=== PATIENT | female | born 1960 | race Caucasian/White ===

== ENCOUNTER 2020-01-22 03:31 | Emergency (ER) | payer BC, SELFPAY ==
[2020-01-22] VITALS (9 sets, daily range): BP systolic 95–113; BP diastolic 70–83; PULSE 72–102; RESP 16–20; TEMP 36.1; O2SAT 92–99; BMI 28.1
--- NOTE | 2020-01-22 03:53 | CTR_ITS ---
PROCEDURE INFORMATION: Exam: CT Abdomen And Pelvis With Contrast Exam date and time: 01/22/2020 3:57 AM Age: 59 years old Clinical indication: Abdominal pain; Localized; Left lower quadrant (llq); Prior surgery; Surgery type: Hysterectomy. Appy; Patient HX: Llq pain with n/v TECHNIQUE: Imaging protocol: Computed tomography of the abdomen and pelvis with intravenous contrast. Radiation optimization: All CT scans at this facility use at least one of these dose optimization techniques: automated exposure control; mA and/or kV adjustment per patient size (includes targeted exams where dose is matched to clinical indication); or iterative reconstruction. Contrast material: OMNI 300; Contrast volume: 95 ml; Contrast route: INTRAVENOUS (IV); COMPARISON: No relevant prior studies available. RADIATION DOSE METRICS: Total DLP (mGy-cm): 1462.27 FINDINGS: Liver: Normal. No mass. Gallbladder and bile ducts: Normal. No calcified stones. No ductal dilation. Pancreas: Normal. No ductal dilation. Spleen: Normal. No splenomegaly. Adrenals: Normal. No mass. Kidneys and ureters: Normal. No hydronephrosis. Stomach and bowel: There is intermediate density fluid seen adjacent to the caudal tip of the liver, within the right pericolic gutter, adjacent to loops of small bowel in the left flank, within the left pericolic gutter and within the pelvis compatible with hemorrhagic fluid. These findings are worrisome for a bowel perforation. There is some bowel wall thickening within the jejunum and the jejunum is dilated. There is some desiccated bowel contents seen within the jejunum in the left flank with a possible transition present (series 2: Image 45, series 602: Image 34 and series 601: Image 21). There are diverticula present on the sigmoid colon. There is no definite evidence for diverticulitis or perforation. Appendix: No evidence of appendicitis. Intraperitoneal space: There is free air seen within the upper abdomen and scattered within the omental and mesenteric fat in the mid abdomen. Vasculature: Unremarkable. No abdominal aortic aneurysm. Lymph nodes: Unremarkable. No enlarged lymph nodes. Bladder: Unremarkable as visualized. Reproductive: Unremarkable as visualized. Bones/joints: Unremarkable. No acute fracture. Soft tissues: Unremarkable. CT/CT abdomen pelvis w con* [id number] IMPRESSION: 1. There is free air and free hemorrhagic fluid present within the abdomen as described above. This raises concern for a bowel perforation. There are dilated loops of jejunum exhibiting prominent wall thickening seen within the left flank with a possible transition seen on the left. 2. Diverticulosis of the sigmoid colon without evidence of diverticulitis. Radiation Dose CTDIVOL = (mGy): DLP = 1462.27 (mGy-cm)
[2020-01-22] MEDS: ondansetron 2 mg/ML SDV 2 mL 4 MG IVP (04:49)
[2020-01-22] MEDS: HYDROmorphone 1 mg/mL INJ 1 mL IVP ×2 (04:51→05:55)
[2020-01-22 05:02] LABS: Basophils % 0.6 %; Eosinophils % 0.2 %; Hematocrit 52.6 % (37.0-47.0); Hemoglobin 17.7 g/dL (11.5-15.3); Lymphocytes # 0.4 10^3/uL (0.8-4.8); Lymphocytes % 7.4 %; Mean Corpuscular HGB Conc 33.7 g/dL (30.0-36.0); Mean Corpuscular Hemoglobin 31.4 pg (28.0-34.0); Mean Corpuscular Volume 93.3 fL (81-99); Mean Platelet Volume 10.4 fL (7.4-10.4); Monocytes # 0.3 10^3/uL (0.2-0.9); Monocytes % 5.2 %; Neutrophils % 86.6 %; Nucleated Red Blood Cells % 0 %; Platelet Count 248 10^3/cmm (130-400); Red Blood Count 5.64 10^6/uL (4.1-5.3); Red Cell Distribution Width 13.2 % (12.1-15.1)
[2020-01-22 05:16] LABS: Alanine Aminotransferase 18 U/L (0-33); Albumin Level 4.5 g/dL (3.5-5.2); Alkaline Phosphatase 91 IU/L (35-105); Anion Gap 15.1 (5-19); Aspartate Amino Transferase 22 U/L (0-32); Blood Urea Nitrogen 19 mg/dL (8-23); Calcium 10.6 mg/dL (8.5-10.5); Carbon Dioxide 29 mmol/L (22-29); Chloride 97 mmol/L (98-107); Globulin 2.9 g/dL (1.3-4.6); Glomerular Filtration Rate 72.9 mL/min (90-130); Glucose 148 mg/dL (65-115); Lactate (Lactic Acid level) 2.6 mmol/L (0.5-2.2); Lipase 40 U/L (13-60); Osmolality Calculated 283 mOsm/kg (285-295); Potassium 4.1 mmol/L (3.5-5.1); Sodium 137 mmol/L (136-145); Total Bilirubin 0.8 mg/dL (0.15-1.2); Total Protein 7.4 g/dL (6.6-8.7)
[2020-01-22] MEDS: iohexol 300 mg/mL 100 mL Btl IV (05:29)
[2020-01-22 05:44] LABS: C Reactive Protein 16.6 mg/L (0.0-4.9)
[2020-01-22] MEDS: ciprofloxacin 400 MG/200 ML PREMIX 200 MG IV (05:55)
--- NOTE | 2020-01-22 06:28 | ED_ITS ---
Documented by User: Gomez Rondon DO 01/22/20 07:48 HPI - Nausea/Vomiting/Diarrhea General: Chief complaint: Nausea/Vomiting/Diarrhea Stated complaint: LLQ ABD PAIN Time Seen by Provider: 01/22/20 05:23 History of Present Illness: HPI Narrative: 59-year-old female with a history of ulcerative colitis. She presents with 3 days of worsening belly pain and distention. She has had some diarrhea with some mucus in the stool. No blood. She is vomited a couple of times. No fever. Pain became much more intense early this morning. Associated nausea: Yes Associated symtoms: Reports nausea; Denies anxiety, change in vision, chest pain, dizziness, dysuria, headache(s) or palpitations Review of Systems Const: Denies: fever(s) or chills Eyes: Denies: change in vision or blurry vision ENMT: Denies: swelling of lips/tongue, post nasal drip or sinus pain Card: Denies: chest pain, palpitations, irregular heart rhythm, edema, dyspnea on exertion or orthopnea Resp: Denies: dyspnea, productive cough, non-productive cough or wheezing GI: Reports: abdominal pain, nausea and vomiting; Denies: rectal pain, hematochezia or melena : Denies: dysuria or hematuria Musc: Denies: neck pain or back pain Skin/Breast: Denies: rash, pruritus or erythema Neuro: Denies: headache(s), dizziness or vertigo Psych: Denies: anxiety PFSH ED PFSH: Medical History (Updated 01/22/20 @ 07:48 by Gomez Rondon DO) Pacemaker Supraventricular arrhythmia Ulcerative colitis Surgical History (Updated 01/22/20 @ 07:19 by Eris Ovalles MD) H/O hysterectomy for benign disease History of appendectomy Physical Exam Const: GENERAL APPEARANCE: well developed ORIENTATION/CONSCIOUSNESS: Yes oriented to person, Yes oriented to place and Yes oriented to time HENMT: COMMON NORMALS: normocephalic, external ears normal and Normal external nose present HEAD & SCALP: normocephalic; no scalp tenderness FACE & SINUS: normal facial exam NOSE: Normal external nose present and No nasal discharge present EXTERNAL EAR: Yes external ears normal MOUTH: tongue normal Eye: COMMON NORMALS: Equal, round and reactive pupils present, EOMs intact bilaterally and conjunctivae normal EYELID: eyelids normal CONJUNCTIVA: Yes conjunctivae normal PUPIL: Yes Equal, round and reactive pupils present Neck/C-Spine: GENERAL: No tracheal deviation Chest: COMMONS NORMALS: normal inspection of the chest CHEST: No tenderness Resp: COMMON NORMALS: clear to auscultation bilaterally EFFORT & INSPECTION: No tachypneic, No respiratory distress, No retractions, No uses accessory muscles and No tracheal deviation AUSCULTATION: clear to auscultation bilaterally, no rhonchi, no wheezes and lung sounds not diminished Cardio: COMMON NORMALS: regular rate and regular rhythm RATE: regular rate RHYTHM: regular rhythm HEART SOUNDS: no murmurs PERIPHERAL PULSES: radial pulses present GI: INSPECTION: No abdominal distension AUSCULTATION: No Hyperactive bowel sounds present and No Hypoactive bowel sounds present PALPATION: No Guarding due to palpation present (GI) and No Rigid due to palpation PERCUSSION: no dullness to percussion and no tympanic to percussion Neuro: SENSORIUM/ORIENTATION: Yes oriented to person, Yes oriented to place and Yes oriented to time Skin: COMMON NORMALS: no rashes or lesions noted GENERAL SKIN EXAM: no rashes or lesions noted Course Consultations: Consultation #1: Giurgius Time: 06:19 Vital Signs: Vital signs: Vital Signs Temperature 96.9 F L 01/22/20 04:04 Pulse Rate 90 01/22/20 08:16 Respiratory Rate 20 H 01/22/20 08:18 Blood Pressure 111/79 01/22/20 08:16 Pulse Oximetry 97 01/22/20 08:18 MDM - Nausea/Vomiting/Diarrhea MDM Narrative: Medical decision making narrative: 59-year-old female history of ulcerative colitis. She presents with belly pain and distention. Her white blood cell count is 5. Her hemoglobin is 17.7. Her other labs are essentially benign save a lactic acid of 2.6. Her vitals are good, blood pressure 113/78, heart rate 90, saturations [address] shows free air, and hemorrhagic fluid consistent with bowel perforation. There is wall thickening of the distal jejunum with distention, which is likely the source of perforation. We discussed findings with her. I spoke with surgery. He came to evaluate her. Her marketing programs specialist is at [facility] in [facility]. She prefers to go there. We have a call out to the general surgeon there. Their bed availability is extremely limited currently. Spoke with Dr. Cardona from [facility]. He is excepted the patient. He advises at least 3 L of fluid bolus during transfer, and agrees with antibiotics. We are awaiting a bed there Lab Data: Labs: Lab Results 01/22/20 01/22/20 01/22/20 Range/Units 04:50 04:50 04:50 WBC 5.0 (4.0-10.0) 10^3/ uL RBC 5.64 H (4.1-5.3) 10^6/u L Hgb 17.7 H (11.5-15.3) g/dL Hct 52.6 H (37.0-47.0) % MCV 93.3 (81-99) fL MCH 31.4 (28.0-34.0) pg MCHC 33.7 (30.0-36.0) g/dL RDW 13.2 (12.1-15.1) % Plt Count 248 (130-400) 10^3/c mm MPV 10.4 (7.4-10.4) fL Neut % (Auto) 86.6 % Lymph % (Auto) 7.4 % [place] % (Auto) 5.2 % Eos % (Auto) 0.2 % Baso % (Auto) 0.6 % Neut # (Auto) 4.30 (1.8-7.7) 10^3/u L Lymph # (Auto) 0.4 L (0.8-4.8) 10^3/u L [place] # (Auto) 0.3 (0.2-0.9) 10^3/u L Eos # (Auto) 0.0 (0.0-0.8) 10^3/u L Baso # (Auto) 0.0 (0.0-0.1) 10^3/u L Nucleated RBC % (a uto) 0 % Nucleated RBCs # 0.0 /100WBC Sodium 137 (136-145) mmol/L Potassium 4.1 (3.5-5.1) mmol/L Chloride 97 L (98-107) mmol/L Carbon Dioxide 29 (22-29) mmol/L Anion Gap 15.1 (5-19) BUN 19 (8-23) mg/dL Creatinine 0.8 (0.5-0.9) mg/dL GFR Calculation 72.9 L (90-130) mL/min Glucose 148 H (65-115) mg/dL Calculated Osmolal ity 283 L (285-295) mOsm/k g Lactate 2.6 H (0.5-2.2) mmol/L Calcium 10.6 H (8.5-10.5) mg/dL Total Bilirubin 0.8 (0.15-1.2) mg/dL AST 22 (0-32) U/L ALT 18 (0-33) U/L Alkaline Phosphata se 91 (35-105) IU/L C-Reactive Protein 16.6 H (0.0-4.9) mg/L Total Protein 7.4 (6.6-8.7) g/dL Albumin 4.5 (3.5-5.2) g/dL Globulin 2.9 (1.3-4.6) g/dL Lipase 40 (13-60) U/L Urine Color (Yellow) Urine Appearance (CLEAR) Urine pH (5-7) Ur Specific Gravit y (1.005-1.030) Urine Protein (Negative) Urine Glucose (UA) (Normal) Urine Ketones (Negative) Urine Blood (Negative) Urine Nitrate (Negative) Urine Bilirubin (NEGATIVE) Urine Urobilinogen (Negative) mg/dL Ur Leukocyte Rylee ase (Negative) Urine RBC (0-2) /hpf Urine WBC (0-5) /hpf Ur Squamous Epith Cells (0-5) Amorphous Sediment Urine Bacteria (NONE) Urine Mucus 07/25/20 Range/Units 07:13 WBC (4.0-10.0) 10^3/ uL RBC (4.1-5.3) 10^6/u L Hgb (11.5-15.3) g/dL Hct (37.0-47.0) % MCV (81-99) fL MCH (28.0-34.0) pg MCHC (30.0-36.0) g/dL RDW (12.1-15.1) % Plt Count (130-400) 10^3/c mm MPV (7.4-10.4) fL Neut % (Auto) % Lymph % (Auto) % [place] % (Auto) % Eos % (Auto) % Baso % (Auto) % Neut # (Auto) (1.8-7.7) 10^3/u L Lymph # (Auto) (0.8-4.8) 10^3/u L [place] # (Auto) (0.2-0.9) 10^3/u L Eos # (Auto) (0.0-0.8) 10^3/u L Baso # (Auto) (0.0-0.1) 10^3/u L Nucleated RBC % (a uto) % Nucleated RBCs # /100WBC Sodium (136-145) mmol/L Potassium (3.5-5.1) mmol/L Chloride (98-107) mmol/L Carbon Dioxide (22-29) mmol/L Anion Gap (5-19) BUN (8-23) mg/dL Creatinine (0.5-0.9) mg/dL GFR Calculation (90-130) mL/min Glucose (65-115) mg/dL Calculated Osmolal ity (285-295) mOsm/k g Lactate (0.5-2.2) mmol/L Calcium (8.5-10.5) mg/dL Total Bilirubin (0.15-1.2) mg/dL AST (0-32) U/L ALT (0-33) U/L Alkaline Phosphata se (35-105) IU/L C-Reactive Protein (0.0-4.9) mg/L Total Protein (6.6-8.7) g/dL Albumin (3.5-5.2) g/dL Globulin (1.3-4.6) g/dL Lipase (13-60) U/L Urine Color Dark yellow (Yellow) Urine Appearance Clear (CLEAR) Urine pH 7 (5-7) Ur Specific Gravit y 1.000 L (1.005-1.030) Urine Protein 1+ H (Negative) Urine Glucose (UA) Norm (Normal) Urine Ketones Negative (Negative) Urine Blood Neg (Negative) Urine Nitrate Negative (Negative) Urine Bilirubin 1+ H (NEGATIVE) Urine Urobilinogen 1 H (Negative) mg/dL Ur Leukocyte Yrlee ase Negative (Negative) Urine RBC None (0-2) /hpf Urine WBC 0-4 H (0-5) /hpf Ur Squamous Epith Cells 25-40 H (0-5) Amorphous Sediment Not Reportable Urine Bacteria Trace (NONE) Urine Mucus Trace Discharge Plan Discharge Patient Disposition: Xfer Other Clinical Impression: Bowel perforation Condition: Stable Referrals: Migel Pack MD [Primary Care Provider] - Discharge Date/Time: 01/22/20 08:48 Coding Level of Care Code ED Form Building Supervisor for Chg Fwd Exam Comprehensive Documented by User: Tejas Gallardo DO 01/22/20 11:44 HPI - Nausea/Vomiting/Diarrhea General: Chief complaint: Nausea/Vomiting/Diarrhea Stated complaint: LLQ ABD PAIN Time Seen by Provider: 01/22/20 05:23 PFSH ED PFSH: Medical History (Updated 01/22/20 @ 07:48 by Gomez Rondon DO) Pacemaker Supraventricular arrhythmia Ulcerative colitis Surgical History (Updated 01/22/20 @ 07:19 by Eris Ovalles MD) H/O hysterectomy for benign disease History of appendectomy Course Vital Signs: Vital signs: Vital Signs Temperature 96.9 F L 01/22/20 04:04 Pulse Rate 90 01/22/20 08:16 Respiratory Rate 20 H 01/22/20 08:18 Blood Pressure 111/79 01/22/20 08:16 Pulse Oximetry 97 01/22/20 08:18 MDM - Nausea/Vomiting/Diarrhea MDM Narrative: Medical decision making narrative: This patient showed up on my incomplete records list. Was cared for by Dr. Rondon I came on shift at the time that he was discharging this patient I did not participate in any way in the care of this patient. Lab Data: Labs: Lab Results 01/22/20 01/22/20 01/22/20 Range/Units 04:50 04:50 04:50 WBC 5.0 (4.0-10.0) 10^3/ uL RBC 5.64 H (4.1-5.3) 10^6/u L Hgb 17.7 H (11.5-15.3) g/dL Hct 52.6 H (37.0-47.0) % MCV 93.3 (81-99) fL MCH 31.4 (28.0-34.0) pg MCHC 33.7 (30.0-36.0) g/dL RDW 13.2 (12.1-15.1) % Plt Count 248 (130-400) 10^3/c mm MPV 10.4 (7.4-10.4) fL Neut % (Auto) 86.6 % Lymph % (Auto) 7.4 % [place] % (Auto) 5.2 % Eos % (Auto) 0.2 % Baso % (Auto) 0.6 % Neut # (Auto) 4.30 (1.8-7.7) 10^3/u L Lymph # (Auto) 0.4 L (0.8-4.8) 10^3/u L [place] # (Auto) 0.3 (0.2-0.9) 10^3/u L Eos # (Auto) 0.0 (0.0-0.8) 10^3/u L Baso # (Auto) 0.0 (0.0-0.1) 10^3/u L Nucleated RBC % (a uto) 0 % Nucleated RBCs # 0.0 /100WBC Sodium 137 (136-145) mmol/L Potassium 4.1 (3.5-5.1) mmol/L Chloride 97 L (98-107) mmol/L Carbon Dioxide 29 (22-29) mmol/L Anion Gap 15.1 (5-19) BUN 19 (8-23) mg/dL Creatinine 0.8 (0.5-0.9) mg/dL GFR Calculation 72.9 L (90-130) mL/min Glucose 148 H (65-115) mg/dL Calculated Osmolal ity 283 L (285-295) mOsm/k g Lactate 2.6 H (0.5-2.2) mmol/L Calcium 10.6 H (8.5-10.5) mg/dL Total Bilirubin 0.8 (0.15-1.2) mg/dL AST 22 (0-32) U/L ALT 18 (0-33) U/L Alkaline Phosphata se 91 (35-105) IU/L C-Reactive Protein 16.6 H (0.0-4.9) mg/L Total Protein 7.4 (6.6-8.7) g/dL Albumin 4.5 (3.5-5.2) g/dL Globulin 2.9 (1.3-4.6) g/dL Lipase 40 (13-60) U/L Urine Color (Yellow) Urine Appearance (CLEAR) Urine pH (5-7) Ur Specific Gravit y (1.005-1.030) Urine Protein (Negative) Urine Glucose (UA) (Normal) Urine Ketones (Negative) Urine Blood (Negative) Urine Nitrate (Negative) Urine Bilirubin (NEGATIVE) Urine Urobilinogen (Negative) mg/dL Ur Leukocyte Rylee ase (Negative) Urine RBC (0-2) /hpf Urine WBC (0-5) /hpf Ur Squamous Epith Cells (0-5) Amorphous Sediment Urine Bacteria (NONE) Urine Mucus 01/22/20 Range/Units 07:13 WBC (4.0-10.0) 10^3/ uL RBC (4.1-5.3) 10^6/u L Hgb (11.5-15.3) g/dL Hct (37.0-47.0) % MCV (81-99) fL MCH (28.0-34.0) pg MCHC (30.0-36.0) g/dL RDW (12.1-15.1) % Plt Count (130-400) 10^3/c mm MPV (7.4-10.4) fL Neut % (Auto) % Lymph % (Auto) % [place] % (Auto) % Eos % (Auto) % Baso % (Auto) % Neut # (Auto) (1.8-7.7) 10^3/u L Lymph # (Auto) (0.8-4.8) 10^3/u L [place] # (Auto) (0.2-0.9) 10^3/u L Eos # (Auto) (0.0-0.8) 10^3/u L Baso # (Auto) (0.0-0.1) 10^3/u L Nucleated RBC % (a uto) % Nucleated RBCs # /100WBC Sodium (136-145) mmol/L Potassium (3.5-5.1) mmol/L Chloride (98-107) mmol/L Carbon Dioxide (22-29) mmol/L Anion Gap (5-19) BUN (8-23) mg/dL Creatinine (0.5-0.9) mg/dL GFR Calculation (90-130) mL/min Glucose (65-115) mg/dL Calculated Osmolal ity (285-295) mOsm/k g Lactate (0.5-2.2) mmol/L Calcium (8.5-10.5) mg/dL Total Bilirubin (0.15-1.2) mg/dL AST (0-32) U/L ALT (0-33) U/L Alkaline Phosphata se (35-105) IU/L C-Reactive Protein (0.0-4.9) mg/L Total Protein (6.6-8.7) g/dL Albumin (3.5-5.2) g/dL Globulin (1.3-4.6) g/dL Lipase (13-60) U/L Urine Color Dark yellow (Yellow) Urine Appearance Clear (CLEAR) Urine pH 7 (5-7) Ur Specific Gravit y 1.000 L (1.005-1.030) Urine Protein 1+ H (Negative) Urine Glucose (UA) Norm (Normal) Urine Ketones Negative (Negative) Urine Blood Neg (Negative) Urine Nitrate Negative (Negative) Urine Bilirubin 1+ H (NEGATIVE) Urine Urobilinogen 1 H (Negative) mg/dL Ur Leukocyte Rylee ase Negative (Negative) Urine RBC None (0-2) /hpf Urine WBC 0-4 H (0-5) /hpf Ur Squamous Epith Cells 25-40 H (0-5) Amorphous Sediment Not Reportable Urine Bacteria Trace (NONE) Urine Mucus Trace Discharge Plan Discharge Patient Disposition: Xfer Other Clinical Impression: Bowel perforation Condition: Stable Referrals: Migel Pack MD [Primary Care Provider] - Discharge Date/Time: 01/22/20 08:48 Coding Level of Care Code ED Form Building Supervisor for Chg Fwd Exam Comprehensive
--- NOTE | 2020-01-22 06:58 | PC.NURSE ---
Dr Rondon and Dr Ovalles at bedside to discuss plan of care. Pt wishes to go to [facility] where her GI specialist is.
[2020-01-22] MEDS: metroNIDAZOLE IV 500 MG/100 ML PREMIX 100 MG IV (07:07)
--- NOTE | 2020-01-22 07:11 | PC.NURSE ---
Pt ambulated to BR with SBA for balance. Pt provided urine sample, labeled and sent to lab.
--- NOTE | 2020-01-22 07:13 | PM.CONSULT ---
Providers/Reason For Consult Consulting Physican/Specialty*: Eris Ovalles MD Reason for Consult*: Bowel perforation Requesting Physcian: Primary Care Provider: Migel Pack MD History of Present Illness History of Present Illness Chief Complaint: I have belly pain History of present illness: Ms. Cha Su is a pleasant 59 year old female presents to the emergency department at [facility] complaining of nausea vomiting and diarrhea,with worsening abdominal pain that started around 9 PM yesterday evening, mostly the pain on the left side of the abdomen in the center not being referred and nothing seems to make it better, no current fevers or chills, patient presented to the ER with her worsening symptoms, and further work-up was done in the form of blood work and CT scan of the abdomen and pelvis. Patient reports history of ulcerative colitis that has been diagnosed with 6 years ago and she has been on Humira and Imuran yet last July she stopped taking Humira as she had a right clavicular fracture and that was stopped but she continued to be on Imuran, last October undergone a colonoscopy in [place] per her GI provider at [facility] and found areas of inflammation of the colon and she has been having steady follow-up with her GI service in [place] since her diagnosis with UC. General surgery was consulted for further evaluation and potential intervention, patient was seen and examined in room (14) in the emergency department Patient has blood work that showed a lactic acid of 2.[address] scan of the abdomen and pelvis that showed: FINDINGS: Liver: Normal. No mass. Gallbladder and bile ducts: Normal. No calcified stones. No ductal dilation. Pancreas: Normal. No ductal dilation. Spleen: Normal. No splenomegaly. Adrenals: Normal. No mass. Kidneys and ureters: Normal. No hydronephrosis. Stomach and bowel: There is intermediate density fluid seen adjacent to the caudal tip of the liver, within the right pericolic gutter, adjacent to loops of small bowel in the left flank, within the left pericolic gutter and within the pelvis compatible with hemorrhagic fluid. These findings are worrisome for a bowel perforation. There is some bowel wall thickening within the jejunum and the jejunum is dilated. There is some desiccated bowel contents seen within the jejunum in the left flank with a possible transition present (series 2: Image 45, series 602: Image 34 and series 601: Image 21). There are diverticula present on the sigmoid colon. There is no definite evidence for diverticulitis or perforation. Appendix: No evidence of appendicitis. Intraperitoneal space: There is free air seen within the upper abdomen and scattered within the omental and mesenteric fat in the mid abdomen. Vasculature: Unremarkable. No abdominal aortic aneurysm. Lymph nodes: Unremarkable. No enlarged lymph nodes. Bladder: Unremarkable as visualized. Reproductive: Unremarkable as visualized. Bones/joints: Unremarkable. No acute fracture. Soft tissues: Unremarkable. CT/CT abdomen pelvis w con* [id number] IMPRESSION: 1. There is free air and free hemorrhagic fluid present within the abdomen as described above. This raises concern for a bowel perforation. There are dilated loops of jejunum exhibiting prominent wall thickening seen within the left flank with a possible transition seen on the left. 2. Diverticulosis of the sigmoid colon without evidence of diverticulitis. Radiation Dose CTDIVOL = (mGy): DLP = 1462.27 (mGy-cm) Review of Systems General: Reports: 10 or more systems reviewed and unremarkable except in HPI and below Meds/Allergies Home Medications and Allergies Allergies Allergy/AdvReac Type Severity Reaction Status Date / Time penicillin G Allergy ALGY-Redness Verified 01/22/20 07:18 of Skin prednisone Allergy ADR/ALGY-Hy Verified 01/22/20 07:18 potension Sulfa (Sulfonamide Allergy ALGY-Rash Verified 01/22/20 07:18 Antibiotics) Current Medications Current Medications Generic Name Dose Route Start Last Admin Trade Name Freq PRN Reason Stop Dose Admin Metronidazole 500 mg in 100 mls @ 100 mls/hr 01/22/20 06:28 01/22/20 07:07 Flagyl Iv IV 01/22/20 07:27 100 mls/hr ONCE ONE Administration PFSH Acute PFSH: Medical History (Updated 01/22/20 @ 07:48 by Gomez Rondon DO) Pacemaker Supraventricular arrhythmia Ulcerative colitis Surgical History (Updated 01/22/20 @ 07:19 by Eris Ovalles MD) H/O hysterectomy for benign disease History of appendectomy Vitals/I&O/Wt Last Vital Signs Temp 96.9 F L 01/22/20 04:04 Pulse 99 01/22/20 07:09 Resp 18 01/22/20 07:09 BP 111/83 07/25/20 07:09 Pulse Ox 94 01/22/20 07:09 01/21/20 01/22/20 01/22/20 22:59 06:59 14:59 Intake Total 200 / 200 Balance 200 / 200 Weight last 48 hrs Weight 180 lb Physical Exam Narrative: EXAM NARRATIVE: Patient is conscious alert oriented X3 Vital signs are stable does not require any pressors BMI 28 Head and neck examination PERRLA no masses no cervical lymphadenopathy no jaundice Cardiac examination audible S1-S2 no murmurs no gallops no arrhythmias Chest is clear bilateral,abscence of Rhonchi or wheezes,no surgical emphysema Left upper chest pacemaker in place Abdomen tender mostly on the left side of the abdomen with guarding, mildly distended Extremities no cyanosis no clubbing no edema A&P Assessment and plan (1) Bowel perforation: 06:30am After thorough history physical examination and reviewing the chart and images of the CT scan with my personal interpretation the patient will require diagnostic laparoscopy possible laparotomy and possible bowel resection and possible colostomy. I did discuss with the patient the potential risks benefits alternatives and indications Patient expressed her desire to be transferred to [facility] as her GI service is on board and they have all her records with regard to her ulcerative colitis, patient's wishes are respected yet she does understand the potential timeframe that she might be subjected to any kind of delay she may end up by sepsis septic shock and demise, potential urgent intervention is warranted at this point. I Did discuss the options with the patient in the presence of Dr. Rondon the attending physician and her caring Nurse Mala in the ER and Patient expressed her wishes to be transferred to [facility] due to the presence of potential colorectal service that does more inflammatory bowel disease surgery. Meanwhile we will continue IV fluid resuscitation patient continues to be hemodynamically stable and IV antibiotics in the form of Zosyn 3.375 mg IV started. Assurance and education All questions have been answered and all concerns have been addressed to patient's satisfaction. Status: Acute Consult Attestations Medical Necessity Statement: Patient will be transferred to another facility Time Spent in Patient Care: 16 - 35 minutes (>than 50% of time spent in counselling and/or direct pt care on unit). Coding Level of Care Code Acute School Cleaner for [place] Diagnoses Bowel perforation K63.1
[2020-01-22 07:34] LABS: Bilirubin Urine 1+ (NEGATIVE); Blood Urine Neg (Negative); Glucose Urine UA Norm (Normal); Ketones Urine Negative (Negative); Nitrate Urine Negative (Negative); Protein Urine 1+ (Negative); Urine Appearance Clear (CLEAR); Urine Color Dark Yellow (Yellow); pH Urine 7 (5-7)
[2020-01-22 07:35] LABS: Add Urine Microscopic? YES; Leukocyte Esterase Urine Negative (Negative); Urobilinogen Urine 1 mg/dL (Negative)
[2020-01-22 07:36] LABS: Squamous Epithelial Cell Urine 25-40 (0-5); WBC Urine 0-4 /hpf (0-5)
[2020-01-22 07:37] LABS: Add Urine Culture? No; Bacteria Urine TRACE; Mucus Urine TRACE
[2020-01-22] MEDS: sodium chloride 0.9% 1,000 ML 150 ML IV (07:41)
[2020-01-22] MEDS: lactated ringers 1,000 ML 1000 ML IV (07:54)
[2020-01-22] MEDS: lactated ringers 1,000 ML 999 ML IV (08:18)
[2020-01-22] MEDS: fentaNYL 50 mcg/mL INJ 2mL IVP (08:18)
== END 2020-01-22 08:48 | disposition other institution (70) ==
PROVIDERS: Emergency Provider Emergency Medicine; PCP Family Medicine
DX: K63.1 Perforation of intestine (nontraumatic) (principal); Z95.0 Presence of cardiac pacemaker
CPT/HCPCS: 12345; 74177; 80053; 81001; 81003; 83605; 83690; 85025; 86140; 96360; 96361; 96365; 96367; 96375; 96376; 99284; 99285; J0744; J1170; J2405; J3010; J7030; Q9967; S0030

== ENCOUNTER 2020-07-30 10:30 | Emergency (ER) | payer BC, SELFPAY ==
[2020-07-30 10:32] VITALS: BP 123/78; PULSE 74; RESP 20; TEMP 36.6; O2SAT 97; BMI 27.5
--- NOTE | 2020-07-30 10:43 | ECG_ITS ---
[facility] Test Date: 2020-07-30 Pat Name: Cha Su Department: Room: Gender: Female Instructor Of Nursing: : 1960 Requested By: Andreas Merlos Order Number: [id number] Kun MD: Oziel Santos M.D. Measurements Intervals [place] Rate: 72 P: 14 OR: 199 QRS: -55 QRSD: 162 T: 100 QT: 421 QTc: 462 Interpretive Statements ELECTRONIC VENTRICULAR PACEMAKER Compared to ECG 07/04/2014 00:24:42 No significant changes Electronically Signed On 07-30-2020 17:00:49 CASE PLANNER by Oziel Santos M.D. [id number]
--- NOTE | 2020-07-30 10:44 | W.ED.COVID ---
HPI - COVID General: Chief Complaint: COVID symptoms Stated Complaint: COVID +, trouble breathing, low O2 Time Seen by Provider: 07/30/20 10:37 Source: patient Mode of arrival: ambulatory Limitations: no limitations Triage information: Has fever, cough or shortness of breath. Exposure to COVID + person last 14 days History of Present Illness: HPI Narrative: 60-year-old female who states she has had Covid-like symptoms since Friday and did test positive on Friday. She has a history of histoplasmosis. She states her PCP had placed her on 2 L of oxygen as needed. Patient states she had increasing cough and shortness of breath. Patient did not wear her oxygen here and is 90 on room air in the room. complaint: known COVID positive COVID 19 common symptoms: positive chills, cough and dyspnea; negative fever(s), non-productive cough, body aches, headache(s), throat pain, nausea, vomiting or diarrhea COVID 19 other sytmptoms: negative chest pain COVID Results: No Data to Display Review of Systems Const: Reports: chills; Denies: fever(s), body aches or change in appetite Eyes: Denies: blurry vision or eye discomfort ENMT: Denies: throat pain or dental pain Card: Denies: chest pain Resp: Reports: dyspnea; Denies: non-productive cough GI: Denies: abdominal pain, nausea, vomiting or diarrhea : Denies: dysuria Musc: Denies: neck pain or back pain Skin/Breast: Denies: rash Neuro: Denies: headache(s) Psych: Denies: depression Vitaliy/Lymph: Denies: easy bruising All/Imm: Denies: urticaria PFSH ED PFSH: Medical History Pacemaker Supraventricular arrhythmia Ulcerative colitis Surgical History H/O hysterectomy for benign disease History of appendectomy Physical Exam Const: COMMON NORMALS: no acute distress, patient oriented x3 and healthy appearing HENMT: COMMON NORMALS: normocephalic and atraumatic HEAD & SCALP: normocephalic and atraumatic Eye: COMMON NORMALS: Equal, round and reactive pupils present and EOMs intact bilaterally PUPIL: Yes Equal, round and reactive pupils present Neck/C-Spine: COMMON NORMALS: full ROM and supple Chest: COMMONS NORMALS: normal inspection of the chest and normal palpation of entire chest wall Resp: COMMON NORMALS: normal respiratory effort, No retractions, No use of accessory muscles and clear to auscultation bilaterally AUSCULTATION: clear to auscultation bilaterally Cardio: COMMON NORMALS: regular rate, regular rhythm and No murmurs present (Cardio) RATE: regular rate RHYTHM: regular rhythm GI: COMMON NORMALS: Normal to inspection, nondistended, normoactive bowel sounds present, Soft to palpation, non-tender and no masses PALPATION: Yes Soft to palpation Extremity: COMMON NORMALS: normal to inspection and full ROM Neuro: COMMON NORMALS: patient oriented x3, moves all extremities and no focal motor deficits Psych: COMMON NORMALS: mental status grossly normal, Normal thought process present and cooperative THOUGHT PROCESS: Normal thought process present Skin: COMMON NORMALS: no rashes or lesions noted and no wounds GENERAL SKIN EXAM: no rashes or lesions noted Course Vital Signs: Vital signs: Vital Signs Temperature 97.9 F 07/30/20 10:32 Pulse Rate 73 07/30/20 12:26 Respiratory Rate 18 07/30/20 12:26 Blood Pressure 108/68 07/30/20 12:26 Pulse Oximetry 97 07/30/20 12:26 MDM - COVID MDM Narrative: Medical decision making narrative: Patient presents here with Covid along with a lower lobe pneumonia. Could be viral but will start on Levaquin. She has been well-appearing here 97% on room air. She is to follow-up with PCP in 4 to 5 days return to ER if worsening. She understands agrees to plan. She has no signs of pulmonary embolism. Lab Data: Labs: Lab Results 07/30/20 07/30/20 07/30/20 Range/Units 12:14 12:14 12:14 WBC 7.6 (4.0-10.0) 10^3/ uL RBC 4.71 (4.1-5.3) 10^6/u L Hgb 13.8 (11.5-15.3) g/dL Hct 43.3 (37.0-47.0) % MCV 91.9 (81-99) fL MCH 29.3 (28.0-34.0) pg MCHC 31.9 (30.0-36.0) g/dL RDW 13.0 (12.1-15.1) % Plt Count 218 (130-400) 10^3/c mm MPV 10.2 (7.4-10.4) fL Neut % (Auto) 85.1 % Lymph % (Auto) 9.7 % Phelps % (Auto) 4.1 % Eos % (Auto) 0.1 % Baso % (Auto) 0.3 % Neut # (Auto) 6.49 (1.8-7.7) 10^3/u L Lymph # (Auto) 0.7 L (0.8-4.8) 10^3/u L Phelps # (Auto) 0.3 (0.2-0.9) 10^3/u L Eos # (Auto) 0.0 (0.0-0.8) 10^3/u L Baso # (Auto) 0.0 (0.0-0.1) 10^3/u L Nucleated RBC % (a uto) 0 % Nucleated RBCs # 0.0 /100WBC Sodium 139 (136-145) mmol/L Potassium 3.7 (3.5-5.1) mmol/L Chloride 102 (98-107) mmol/L Carbon Dioxide 29 (22-29) mmol/L Anion Gap 11.7 (5-19) BUN 10 (8-23) mg/dL Creatinine 0.5 (0.5-0.9) mg/dL GFR Calculation 125.0 (90-130) mL/min Glucose 94 (65-115) mg/dL Calculated Osmolal ity 287 (285-295) mOsm/k g Lactic Acid 1.1 (0.5-2.2) mmol/L Calcium 8.9 (8.5-10.5) mg/dL Total Bilirubin 0.5 (0.15-1.2) mg/dL AST 29 (0-32) U/L ALT 22 (0-33) U/L Alkaline Phosphata se 143 H (35-105) IU/L C-Reactive Protein 55.1 H (0.0-4.9) mg/L Total Protein 6.8 (6.6-8.7) g/dL Albumin 3.4 L (3.5-5.2) g/dL Globulin 3.4 (1.3-4.6) g/dL Imaging Data: CXR: Attestation: I personally reviewed and interpreted this imaging study as follows: Radiologist's impression: [address] [address] XRay Report Signed Patient: Cha Su Unit #: [id number] : 1960 Age/Sex: 60 / F ADM Date: 07/30/20 Loc: ER Room/Bed: Attending Dr: Ordering Provider/Ordering MD: Andreas Merlos MD Date of Service: 07/30/20 Procedure(s): XR chest 1V portable [id number] Accession Number(s): [id number] Report Number: [id number] PROCEDURE INFORMATION: Exam: XR Chest, 1 View Exam date and time: 07/30/2020 10:59 AM Age: 60 years old Clinical indication: Shortness of breath; Prior surgery; Surgery type: Pacer; Additional info: SOB TECHNIQUE: Imaging protocol: XR of the chest Views: 1 view. COMPARISON: [facility] Chest 2 views 02/17/2018 11:35 AM FINDINGS: Tubes, catheters and devices: A permanent pacemaker appears intact. Lungs: There are patchy opacities in the left base which may represent a left lower lobe pneumonia. The right lung is clear. Pleural spaces: Unremarkable. No pleural effusion. No pneumothorax. Heart/Mediastinum: Unremarkable. No cardiomegaly. Bones/joints: Unremarkable. XR/XR chest 1V portable [id number] IMPRESSION: Patchy left basilar opacities which may represent a left lower lobe pneumonia. EKG Data: EKG 1: Attestation: I personally reviewed and interpreted this EKG as follows: EKG interpretation date: 07/30/20 EKG interpretation time: 11:07 Interpretation: paced rhythm hr [address] or t wave abnormalities qrs 162 qtc 445 COVID Results: No Data to Display Discharge Plan Discharge Patient Disposition: Home Clinical Impression: COVID-19 Pneumonia Qualifiers: Pneumonia type: due to unspecified organism Laterality: left Lung location: lower lobe of lung Qualified Code(s): J18.9 - Pneumonia, unspecified organism Condition: Stable Prescriptions: New levofloxacin 750 mg tablet 750 mg PO DAILY 5 Days Qty: 5 RF: 0 Discharge Orders: Discharge ED (Routine); Ordered 07/30/20 Ordered By: Andreas Merlos Discharge Diet: Advance as tolerated Discharge Activity: Resume usual activity Patient Instructions: Pneumonia (ED) Coding Level of Care Code ED Professor Of Environmental Engineering for Ld Fwd Exam Comprehensive
[2020-07-30 10:46] VITALS: O2SAT 97
[2020-07-30] MEDS: albuterol 8 gm MDI 2 PUFF INHALATION (11:11)
[2020-07-30 11:12] VITALS: PULSE 73; RESP 18; O2SAT 97
[2020-07-30 11:19] VITALS: PULSE 78
[2020-07-30 12:25] LABS: Basophils % 0.3 %; Eosinophils % 0.1 %; Hematocrit 43.3 % (37.0-47.0); Hemoglobin 13.8 g/dL (11.5-15.3); Lymphocytes # 0.7 10^3/uL (0.8-4.8); Lymphocytes % 9.7 %; Mean Corpuscular HGB Conc 31.9 g/dL (30.0-36.0); Mean Corpuscular Hemoglobin 29.3 pg (28.0-34.0); Mean Corpuscular Volume 91.9 fL (81-99); Mean Platelet Volume 10.2 fL (7.4-10.4); Monocytes # 0.3 10^3/uL (0.2-0.9); Monocytes % 4.1 %; Neutrophils # 6.49 10^3/uL (1.8-7.7); Neutrophils % 85.1 %; Nucleated Red Blood Cells % 0 %; Platelet Count 218 10^3/cmm (130-400); Red Blood Count 4.71 10^6/uL (4.1-5.3); White Blood Count 7.6 10^3/uL (4.0-10.0)
[2020-07-30 12:26] VITALS: BP 108/68; PULSE 73; RESP 18; O2SAT 97
[2020-07-30 12:51] LABS: Lactic Sepsis W/Reflex 1.1 mmol/L (0.5-2.2)
[2020-07-30 12:52] LABS: Alanine Aminotransferase 22 U/L (0-33); Albumin Level 3.4 g/dL (3.5-5.2); Alkaline Phosphatase 143 IU/L (35-105); Anion Gap 11.7 (5-19); Aspartate Amino Transferase 29 U/L (0-32); Blood Urea Nitrogen 10 mg/dL (8-23); C Reactive Protein 55.1 mg/L (0.0-4.9); Calcium 8.9 mg/dL (8.5-10.5); Carbon Dioxide 29 mmol/L (22-29); Chloride 102 mmol/L (98-107); Globulin 3.4 g/dL (1.3-4.6); Glucose 94 mg/dL (65-115); Osmolality Calculated 287 mOsm/kg (285-295); Potassium 3.7 mmol/L (3.5-5.1); Sodium 139 mmol/L (136-145); Total Bilirubin 0.5 mg/dL (0.15-1.2); Total Protein 6.8 g/dL (6.6-8.7)
[2020-07-30 13:47] VITALS: BP 110/70; PULSE 67; RESP 18; O2SAT 96
[2020-07-30 15:07] LABS: NT Pro B Type Natriuretic Pept 179 pg/mL (0-125)
== END 2020-07-30 13:48 | disposition home or self-care (01) ==
PROVIDERS: Emergency Provider Emergency Medicine
DX: U07.1 COVID-19 (principal); J12.82 Pneumonia due to coronavirus disease 2019; Z95.0 Presence of cardiac pacemaker
CPT/HCPCS: 12345; 36415; 71045; 80053; 83605; 83880; 85025; 86140; 93005; 94640; 99282; 99283; J3535

== ENCOUNTER 2021-01-24 02:49 | Inpatient (IN) | payer BC, SELFPAY ==
[2021-01-24] VITALS (14 sets, daily range): BP systolic 100–131; BP diastolic 59–76; PULSE 60–75; RESP 14–19; TEMP 36.7–36.8; O2SAT 94–100; BMI 29.7
--- NOTE | 2021-01-24 03:23 | CTR_ITS ---
PROCEDURE INFORMATION: Exam: CT Abdomen And Pelvis With Contrast Exam date and time: 01/24/2021 3:23 AM Age: 60 years old Clinical indication: Abdominal pain; Generalized; Prior surgery; Surgery type: Appy. Partial hysterectomy. ; Patient HX: Diffuse abd pain. TECHNIQUE: Imaging protocol: Computed tomography of the abdomen and pelvis with contrast. Radiation optimization: All CT scans at this facility use at least one of these dose optimization techniques: automated exposure control; mA and/or kV adjustment per patient size (includes targeted exams where dose is matched to clinical indication); or iterative reconstruction. Contrast material: OMNI 300; Contrast volume: 95 ml; Contrast route: INTRAVENOUS (IV); COMPARISON: CT abdomen pelvis w con* [id number] 01/22/2020 5:21 AM RADIATION DOSE METRICS: Total DLP (mGy-cm): 1669.37 FINDINGS: Lungs: The lung bases are clear. No effusion Liver: Normal. No mass. Gallbladder and bile ducts: No wall thickening, pericholecystic fluid or stones. Pancreas: There is fat stranding around the head of the pancreas and 3rd portion of the duodenum. Spleen: Normal. No splenomegaly. Adrenal glands: Normal. No mass. Kidneys and ureters: Normal. No hydronephrosis. Stomach and bowel: Diverticulosis without diverticulitis. 2.5 cm duodenal diverticulum. Appendix: The appendix is not positively identified. However, no secondary changes of appendicitis are present. Intraperitoneal space: Unremarkable. No free air. No significant fluid collection. Vasculature: Unremarkable. No abdominal aortic aneurysm. Lymph nodes: Unremarkable. No enlarged lymph nodes. Urinary bladder: Unremarkable as visualized. Reproductive: Unremarkable as visualized. Bones/joints: Severe disc space narrowing at L4-L5. Soft tissues: Unremarkable. CT/CT abdomen pelvis w con* [id number] IMPRESSION: 1. Duodenitis versus acute pancreatitis. 2. Diverticulosis without diverticulitis. 3. The appendix is not positively identified. However, no secondary changes of appendicitis are present. Pacemaker leads are present in the heart. Radiation Dose CTDIVOL = (mGy): DLP = 1669.37 (mGy-cm)
--- NOTE | 2021-01-24 03:36 | W.ED.ABDPA2 ---
HPI - Abdominal Pain General: Chief Complaint: Abdominal Pain Stated Complaint: Possible Bowel Obstruction Time Seen by Provider: 01/24/21 03:06 Source: patient Mode of arrival: ambulatory Limitations: no limitations History of Present Illness: HPI narrative: 60-year-old female states that throughout the day she been having diffuse abdominal pain is been mild to moderate nature. She rates pain a 5 out of 10 currently. States she had a bowel movement this morning. She states she had a perforated bowel last year so she was getting concerned. Denies any fever. Denies any vomiting or diarrhea. Associated Symptoms: Denies chills, dysuria and fever(s) Review of Systems Const: Denies: fever(s), chills, body aches or change in appetite Eyes: Denies: blurry vision or eye discomfort ENMT: Denies: throat pain or dental pain Card: Denies: chest pain Resp: Denies: dyspnea GI: Reports: abdominal pain : Denies: dysuria Musc: Denies: neck pain or back pain Skin/Breast: Denies: rash Neuro: Denies: headache(s) Psych: Denies: depression Vitaliy/Lymph: Denies: easy bruising All/Imm: Denies: urticaria PFSH ED PFSH: Medical History Pacemaker Supraventricular arrhythmia Ulcerative colitis Surgical History H/O hysterectomy for benign disease History of appendectomy Physical Exam Const: COMMON NORMALS: no acute distress, patient oriented x3 and healthy appearing HENMT: COMMON NORMALS: normocephalic and atraumatic HEAD & SCALP: normocephalic and atraumatic Eye: COMMON NORMALS: Equal, round and reactive pupils present and EOMs intact bilaterally PUPIL: Yes Equal, round and reactive pupils present Neck/C-Spine: COMMON NORMALS: full ROM and supple Chest: COMMONS NORMALS: normal inspection of the chest and normal palpation of entire chest wall Resp: COMMON NORMALS: normal respiratory effort, No retractions, No use of accessory muscles and clear to auscultation bilaterally AUSCULTATION: clear to auscultation bilaterally Cardio: COMMON NORMALS: regular rate, regular rhythm and No murmurs present (Cardio) RATE: regular rate RHYTHM: regular rhythm GI: COMMON NORMALS: Soft to palpation, non-tender and no masses PALPATION: Yes Soft to palpation OTHER: Mild diffuse tenderness Extremity: COMMON NORMALS: normal to inspection and full ROM Neuro: COMMON NORMALS: patient oriented x3, moves all extremities and no focal motor deficits Psych: COMMON NORMALS: mental status grossly normal, Normal thought process present and cooperative THOUGHT PROCESS: Normal thought process present Skin: COMMON NORMALS: no rashes or lesions noted and no wounds GENERAL SKIN EXAM: no rashes or lesions noted Course Vital Signs: Vital signs: Vital Signs Temperature 98.1 F 01/24/21 03:07 Pulse Rate 67 01/24/21 04:00 Respiratory Rate 16 01/24/21 04:16 Blood Pressure 101/59 01/24/21 04:00 Pulse Oximetry 97 01/24/21 04:16 MDM - Abdominal Pain MDM Narrative: Medical decision making narrative: Patient presents here with acute pancreatitis. Patient is required multiple IV pain doses. I had a long discussion with her and she states she is in too much pain to go home. I spoke to hospitalist will admit her for her pancreatitis. She has no signs of sepsis. Lab Data: Labs: Lab Results 01/24/21 01/24/21 01/24/21 Range/Units 03:54 03:54 03:54 WBC 20.8 H (4.0-10.0) 10^3/ uL RBC 4.62 (4.1-5.3) 10^6/u L Hgb 13.9 (11.5-15.3) g/dL Hct 42.8 (37.0-47.0) % MCV 92.6 (81-99) fL MCH 30.1 (28.0-34.0) pg MCHC 32.5 (30.0-36.0) g/dL RDW 13.5 (12.1-15.1) % Plt Count 274 (130-400) 10^3/c mm MPV 10.0 (7.4-10.4) fL Neut % (Auto) 88.2 % Lymph % (Auto) 5.7 % Borden % (Auto) 4.8 % Eos % (Auto) 0.2 % Baso % (Auto) 0.4 % Neut # (Auto) 18.30 H (1.8-7.7) 10^3/u L Lymph # (Auto) 1.2 (0.8-4.8) 10^3/u L Borden # (Auto) 1.0 H (0.2-0.9) 10^3/u L Eos # (Auto) 0.1 (0.0-0.8) 10^3/u L Baso # (Auto) 0.1 (0.0-0.1) 10^3/u L Nucleated RBC % (a uto) 0 % Nucleated RBCs # 0.0 /100WBC Sodium 138 (136-145) mmol/L Potassium 4.3 (3.5-5.1) mmol/L Chloride 102 (98-107) mmol/L Carbon Dioxide 28 (22-29) mmol/L Anion Gap 12.3 (5-19) BUN 15 (8-23) mg/dL Creatinine 0.6 (0.5-0.9) mg/dL GFR Calculation 101.3 (90-130) mL/min Glucose 123 H (65-115) mg/dL Calculated Osmolal ity 288 (285-295) mOsm/k g Lactate 1.1 (0.5-2.2) mmol/L Calcium 9.0 (8.5-10.5) mg/dL Total Bilirubin 0.6 (0.15-1.2) mg/dL AST 36 H (0-32) U/L ALT 27 (0-33) U/L Alkaline Phosphata se 115 H (35-105) IU/L Total Protein 6.0 L (6.6-8.7) g/dL Albumin 3.7 (3.5-5.2) g/dL Globulin 2.3 (1.3-4.6) g/dL Lipase 529 H (13-60) U/L Imaging Data ^: CT Abd/Pel: Radiologist's impression: [address] [address] [address] Scan Report Signed Patient: Cha Su Unit #: [id number] : 1960 Age/Sex: 60 / F ADM Date: 01/24/21 Loc: ER Room/Bed: Attending Dr: Ordering Provider/Ordering MD: Andreas Merlos MD Date of Service: 01/24/21 Procedure(s): CT abdomen pelvis w con* [id number] Accession Number(s): [id number] Report Number: [id number] PROCEDURE INFORMATION: Exam: CT Abdomen And Pelvis With Contrast Exam date and time: 01/24/2021 3:23 AM Age: 60 years old Clinical indication: Abdominal pain; Generalized; Prior surgery; Surgery type: Appy. Partial hysterectomy. ; Patient HX: Diffuse abd pain. TECHNIQUE: Imaging protocol: Computed tomography of the abdomen and pelvis with contrast. Radiation optimization: All CT scans at this facility use at least one of these dose optimization techniques: automated exposure control; mA and/or kV adjustment per patient size (includes targeted exams where dose is matched to clinical indication); or iterative reconstruction. Contrast material: OMNI 300; Contrast volume: 95 ml; Contrast route: INTRAVENOUS (IV); COMPARISON: CT abdomen pelvis w con* [id number] 01/22/2020 5:21 AM RADIATION DOSE METRICS: Total DLP (mGy-cm): 1669.37 FINDINGS: Lungs: The lung bases are clear. No effusion Liver: Normal. No mass. Gallbladder and bile ducts: No wall thickening, pericholecystic fluid or stones. Pancreas: There is fat stranding around the head of the pancreas and 3rd portion of the duodenum. Spleen: Normal. No splenomegaly. Adrenal glands: Normal. No mass. Kidneys and ureters: Normal. No hydronephrosis. Stomach and bowel: Diverticulosis without diverticulitis. 2.5 cm duodenal diverticulum. Appendix: The appendix is not positively identified. However, no secondary changes of appendicitis are present. Intraperitoneal space: Unremarkable. No free air. No significant fluid collection. Vasculature: Unremarkable. No abdominal aortic aneurysm. Lymph nodes: Unremarkable. No enlarged lymph nodes. Urinary bladder: Unremarkable as visualized. Reproductive: Unremarkable as visualized. Bones/joints: Severe disc space narrowing at L4-L5. Soft tissues: Unremarkable. CT/CT abdomen pelvis w con* [id number] IMPRESSION: 1. Duodenitis versus acute pancreatitis. 2. Diverticulosis without diverticulitis. 3. The appendix is not positively identified. However, no secondary changes of appendicitis are present. Pacemaker leads are present in the heart. Radiation Dose CTDIVOL = (mGy): DLP = 1669.37 (mGy-cm) Dictated By: Luis Keith Signed By: Luis Keith Signed Date/Time: 01/24/21436 DD/ 5 Discharge Plan Discharge Patient Disposition: Admitted As Inpatient Clinical Impression: Pancreatitis Qualifiers: Chronicity: acute Pancreatitis type: unspecified pancreatitis type Acute pancreatitis complication: unspecified Qualified Code(s): K85.90 - Acute pancreatitis without necrosis or infection, unspecified Condition: Stable Discharge Diet: Advance as tolerated Discharge Activity: Resume usual activity Coding Level of Care Code ED Agricultural Engineering Technician for Chg Fwd Exam Comprehensive
[2021-01-24 03:57] LABS: Basophils # 0.1 10^3/uL (0.0-0.1); Basophils % 0.4 %; Eosinophils # 0.1 10^3/uL (0.0-0.8); Eosinophils % 0.2 %; Hematocrit 42.8 % (37.0-47.0); Hemoglobin 13.9 g/dL (11.5-15.3); Lymphocytes # 1.2 10^3/uL (0.8-4.8); Lymphocytes % 5.7 %; Mean Corpuscular HGB Conc 32.5 g/dL (30.0-36.0); Mean Corpuscular Hemoglobin 30.1 pg (28.0-34.0); Mean Corpuscular Volume 92.6 fL (81-99); Monocytes % 4.8 %; Neutrophils % 88.2 %; Nucleated Red Blood Cells % 0 %; Platelet Count 274 10^3/cmm (130-400); Red Blood Count 4.62 10^6/uL (4.1-5.3); Red Cell Distribution Width 13.5 % (12.1-15.1); White Blood Count 20.8 10^3/uL (4.0-10.0)
[2021-01-24] MEDS: iohexol 300 mg/mL 100 mL Btl IV (04:01)
[2021-01-24] MEDS: ondansetron 2 mg/ML SDV 2 mL 4 MG IVP ×2 (04:12→10:12)
[2021-01-24] MEDS: morphine 4 mg/mL SDV 1 mL IVP (04:16)
[2021-01-24 04:19] LABS: Alanine Aminotransferase 27 U/L (0-33); Albumin Level 3.7 g/dL (3.5-5.2); Alkaline Phosphatase 115 IU/L (35-105); Anion Gap 12.3 (5-19); Aspartate Amino Transferase 36 U/L (0-32); Blood Urea Nitrogen 15 mg/dL (8-23); Carbon Dioxide 28 mmol/L (22-29); Chloride 102 mmol/L (98-107); Creatinine Clr Calc Pharmacy 109.6301; Globulin 2.3 g/dL (1.3-4.6); Glomerular Filtration Rate 101.3 mL/min (90-130); Glucose 123 mg/dL (65-115); Osmolality Calculated 288 mOsm/kg (285-295); Potassium 4.3 mmol/L (3.5-5.1); Sodium 138 mmol/L (136-145); Total Bilirubin 0.6 mg/dL (0.15-1.2)
[2021-01-24 04:20] LABS: Lactate (Lactic Acid level) 1.1 mmol/L (0.5-2.2)
[2021-01-24 04:27] LABS: Lipase 529 U/L (13-60)
[2021-01-24] MEDS: HYDROmorphone 1 mg/mL INJ 1 mL IVP (06:06)
--- NOTE | 2021-01-24 08:18 | XR_ITS ---
WS: [id number] XR chest 1V portable [id number] REASON FOR EXAM: evaluate for pneumonia FINDINGS: Battery pack in place over the left chest with leads to the right atrium and right ventricular from a left subclavian vein. Mild tortuosity of the thoracic aorta without aneurysmal dilatation. Heart at the upper limits of normal in size. No active pulmonary parenchymal or pleural disease. XR/XR chest 1V portable [id number] IMPRESSION: No acute pulmonary abnormality.
--- NOTE | 2021-01-24 08:22 | P.HP_ITS ---
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 Manish Canales at [facility]. Also has a past history of ulcerative colitis for which she was on Humira, taken off when she developed disseminated histoplasmosis she presented to the emergency room today due to complaints of abdominal pain bloating poor appetite since the last 3 to 4 days, progressing since yesterday. In the ER underwent a CAT scan that shows acute pancreatitis together with elevated lipase. No gallstones identified per se. LFTs are within range. No recent changes in her medications. Elevated leukocytosis at 20,000. Has poor appetite and nausea, no vomiting yet. Last bowel movement was yesterday, reportedly normal. Review of system positive for subjective chills, afebrile since presentation to ER Review of Systems General: Reports: 10 or more systems reviewed and unremarkable except in HPI and below Const: Reports: chills and body aches; Denies: fever(s) Eyes: Denies: change in vision, blurry vision or photophobia ENMT: Reports: hoarseness; Denies: throat pain, enlarged tonsils, odynophagia or nasal congestion Card: Denies: chest pain, palpitations, irregular heart rhythm, edema, swelling of feet/ankles, lightheadedness, pre-syncope, dyspnea on exertion or orthopnea Resp: Denies: dyspnea, productive cough, non-productive cough, wheezing, stridor, pain on inspiration, change in phlegm color, hemoptysis or chest congestion GI: Denies: abdominal pain, nausea, vomiting, hematemesis, coffee ground emesis, dysphagia, heartburn, diarrhea, constipation, GI cramping, change in stool character, hematochezia or melena : Denies: flank pain, difficulty voiding, dysuria, urinary frequency, urinary urgency, urinary hesitancy or hematuria Musc: Denies: neck pain, back pain, extremity pain, joint swelling, joint warmth or deformity Neuro: Denies: headache(s), numbness in extremities, weakness in extremities, sensory changes, difficulty walking, frequent falls, dizziness, vertigo, behavioral changes, Slurred speech present or seizure-like activity Psych: Denies: anxiety, depression, suicidal ideation or homicidal ideation Endo: Denies: polyuria, polydipsia, tired all the time, cold intolerance or hot flashes Vitaliy/Lymph: Denies: easy bruising or easy bleeding Medications/Allergies Home Medications Medication Instructions Recorded Confirmed Last Taken Type Citracal plus D 1 tab PO DAILY 01/24/21 01/24/21 Unknown History Fish Oil 1 cap PO DAILY 01/24/21 01/24/21 Unknown History Probiotic Gummies 1 tab PO DAILY 01/24/21 01/24/21 Unknown History Vitamin B-12 1 tab PO DAILY 01/24/21 01/24/21 Unknown History ascorbic acid (vitamin C) [Vitamin 1,000 mg PO DAILY 01/24/21 01/24/21 Unknown History C] azelastine 2 spray INTRANASAL BID 01/24/21 01/24/21 Unknown History benzonatate [Tessalon Perles] 100 mg PO TID 01/24/21 01/24/21 Unknown History cetirizine [Zyrtec] 10 mg PO DAILY 01/24/21 01/24/21 Unknown History cholecalciferol (vitamin D3) 25 mcg PO DAILY 01/24/21 01/24/21 Unknown History [Vitamin D3] dextromethorphan-guaifenesin 1 tab PO Q12H 01/24/21 01/24/21 Unknown History [Mucinex DM] estradiol 1 mg PO QAM 01/24/21 01/24/21 Unknown History fluticasone propionate [Flonase] 2 spray INTRANASAL BID 01/24/21 01/24/21 Unknown History hydrocodone-acetaminophen 1 tab PO Q6H PRN #14 tab 01/24/21 Unknown Rx itraconazole 200 mg PO BID 01/24/21 01/24/21 Unknown History mometasone-formoterol [Dulera] 2 puff INHALATION BID 01/24/21 01/24/21 Unknown History multivitamin 1 tab PO DAILY 01/24/21 01/24/21 Unknown History olopatadine [Pataday] 1 drp OPHTHALMIC (EYE) QAM 01/24/21 01/24/21 Unknown History ondansetron 4 mg PO Q6H PRN #14 tab 01/24/21 Unknown Rx tiotropium bromide [Spiriva 2 puff INHALATION QAM 01/24/21 01/24/21 Unknown History Respimat] Allergies Allergy/AdvReac Type Severity Reaction Status Date / Time budesonide Allergy ALGY-Rash Verified 01/24/21 08:01 penicillin G Allergy ALGY-Redness Verified 01/24/21 08:01 of Skin prednisone Allergy ADR/ALGY-Hy Verified 01/24/21 08:01 potension Sulfa (Sulfonamide Allergy ALGY-Rash Verified 01/24/21 08:01 Antibiotics) sulfamethoxazole Allergy ALGY-Swell Verified 01/24/21 08:01 [From Septra] Lip/Tongue/Throat trimethoprim [From Febra] Allergy ALGY-Swell Verified 01/24/21 08:01 Lip/Tongue/Throat PFSH Acute PFSH: Medical History (Updated 01/24/21 @ 09:39 by Brittney Lopez MD) 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 Pacemaker Supraventricular arrhythmia Ulcerative colitis Surgical History H/O hysterectomy for benign disease History of appendectomy Vitals/I&O/Wt Last Vital Signs Temp 98.1 F 01/24/21 03:07 Pulse 64 01/24/21 06:30 Resp 15 01/24/21 06:30 BP 105/63 01/24/21 06:30 Pulse Ox 95 01/24/21 06:30 Weight last 48 hrs Weight 86.183 kg Physical Exam Narrative: EXAM NARRATIVE: General: No acute distress, AO x3 HEENT: PERRLA, pupils bilaterally equal and reactive, pallors not present Chest: Normal vesicular breath sounds, no added sounds, equal good air entry bilaterally CVS: S1-S2 regular, no murmurs, no tachycardia, no gallops, no rubs Abdomen: tender to palpation over epigastric region Neuro: No focal deficits, no facial deformity, AO x3, power 5/5 in all limbs Extremities: Healthy surgical dressing present on the right hip, mild tenderness, soft no erythema. Data : 01/24/21 03:54 01/24/21 03:54 A&P Assessment and plan (1) Pancreatitis: Status: Acute Qualifiers: Acute pancreatitis complication: unspecified Chronicity: acute Pancreatitis type: unspecified pancreatitis type Qualified Code(s): K85.90 - Acute pancreatitis without necrosis or infection, unspecified Additional A&P Information # Patient presenting today with abdominal pain, bloating, poor p.o. intake, inability to intake food CT and elevated lipase indicative of pancreatitis with likely reactive duodenitis. N.p.o. for now IV hydration with D5 normal saline 75 cc an hour Check triglyceride levels alcohol level No obstructive biliary etiology noted on CT. Pain control with alternating morphine and Toradol Closely monitor leukocytosis, elevated today at 20,000, likely as a result of inflammation and stress response No current localizing signs or symptoms of infection, monitor off antimicrobials. #History of disseminated histo, diagnosed when patient presented with bowel perforation 1 year ago, currently on maintenance lifelong therapy with itraconazole 400 mg daily. Continue same. #History of ulcerative colitis, previously on biologicals, taken off 1 year ago with discovery of disseminated histoplasmosis. No current diarrhea or blood in stools. DVt ppx: lovenix Full code Vaccinated for COVID 19 Attestations Medical Necessity Statement*: Anticipate greater than 2 midnight admission for management of acute pancreatitis, closely monitor leukocytosis trend, assess for bowel function and p.o. intake tolerability Coding Level of Care Code Acute Research And Development Specialist for [place] [place] Diagnoses Pancreatitis K85.90 Acute pancreatitis complication: unspecified Chronicity: acute Pancreatitis type: unspecified pancreatitis type
[2021-01-24 08:59] LABS: Triglycerides 62 mg/dL (0-150)
[2021-01-24] MEDS: enoxaparin 40 mg/0.4 mL Syringe SUBCUT (09:24)
[2021-01-24] MEDS: famotidine 20 mg/2 mL INJ IVP (09:24)
[2021-01-24] MEDS: dextrose 5%-sod chloride 0.9% 1,000 ML 75 ML IV ×2 (09:27→16:23)
[2021-01-24 10:04] LABS: Alcohol Level < 10 mg/dL (0-10)
[2021-01-24] MEDS: morphine 4 mg/mL SDV 1 mL 2 MG IVP ×3 (10:11→20:09)
--- NOTE | 2021-01-24 11:45 | PM.PN ---
Subjective Subjective: Interval history: Patient was seen and examined, was not complaining of any active diarrhea nausea or vomiting however mild soreness in midepigastric and right upper quadrant Vitals/I&O/Wt Last Vital Signs Temp 98.1 F 01/24/21 03:07 Pulse 62 01/24/21 08:19 Resp 17 01/24/21 10:11 BP 131/73 01/24/21 08:19 Pulse Ox 96 01/24/21 08:19 Weight last 48 hrs Weight 86.183 kg Physical Exam Narrative: EXAM NARRATIVE: Was laying supine without any active discomfort S1, S2 No acute audible stridor or wheezing Mild tenderness to deep palpation in midepigastric and right upper quadrant EOMI, PERRLA No neurological deficit Hyperemia conjunctivobilaterally noted Appropriate mood and affect No joint swelling Appears dehydrated Data : 01/24/21 03:54 01/24/21 03:54 A&P Assessment and plan (1) Disseminated histoplasmosis: Status: Acute (2) Pancreatitis: Status: Acute Qualifiers: Acute pancreatitis complication: unspecified Chronicity: acute Pancreatitis type: unspecified pancreatitis type Qualified Code(s): K85.90 - Acute pancreatitis without necrosis or infection, unspecified Additional A&P Information Acute pancreatitis Etiology unclear Lipase 529 with normal liver enzymes She has been vaccinated for COVID-19 No gallstone noticed on CT abdomen will request HIDA scan With pancreatitis and duodenitis my concern is still therefore passage of gallstone Mirizzi syndrome less likely Afebrile no active signs of sepsis I would keep her on full liquid diet and advance as tolerated Continue IV fluid along appropriate analgesia No signs of sepsis No signs of decompensated ulcerative colitis Itraconazole to be continued once she is able to tolerate p.o. diet for disseminated histoplasmosis Lovenox for DVT prophylaxis Full code Attestations Medical Necessity Statement*: Continue medical management for pancreatitis Time Spent in Patient Care: less than 15 minutes Coding Level of Care Code Acute Mental Health Associate for [place] Diagnoses Disseminated histoplasmosis B39.9 Pancreatitis K85.90 Acute pancreatitis complication: unspecified Chronicity: acute Pancreatitis type: unspecified pancreatitis type
--- NOTE | 2021-01-24 14:25 | PC.NURSE ---
Up to the bathroom, at bedside.
--- NOTE | 2021-01-24 16:33 | PC.NURSE ---
THIS NURSE COVID SWABBED PATIENT ([facility]) AND JUST TUBED DOWN TO LAB.
[2021-01-25] VITALS (8 sets, daily range): BP systolic 102–113; BP diastolic 64–74; PULSE 60–72; RESP 17–20; TEMP 36.5–37.1; O2SAT 94–98
--- NOTE | 2021-01-25 05:44 | PC.NURSE ---
shift summary This nurse had to resend covid sendout swab as lab states they did not receive swab sent earlier from [facility]. Patient has rested comfortably in bed throughout this shift. Patient has been NPO since midnight and has not had any pain medication since 1999 in preparation for HIDA scan this morning. PAtient is currently resting comfortably in bed.
[2021-01-25] MEDS: dextrose 5%-sod chloride 0.9% 1,000 ML 75 ML IV (05:47)
[2021-01-25 05:50] LABS: Basophils # 0.1 10^3/uL (0.0-0.1); Basophils % 0.4 %; Eosinophils # 0.1 10^3/uL (0.0-0.8); Eosinophils % 0.5 %; Hemoglobin 12.4 g/dL (11.5-15.3); Lymphocytes % 6.9 %; Mean Corpuscular HGB Conc 31.8 g/dL (30.0-36.0); Mean Corpuscular Volume 94.4 fL (81-99); Monocytes # 0.7 10^3/uL (0.2-0.9); Monocytes % 5.1 %; Neutrophils # 12.06 10^3/uL (1.8-7.7); Neutrophils % 86.5 %; Nucleated Red Blood Cells % 0 %; Platelet Count 239 10^3/cmm (130-400); Red Blood Count 4.13 10^6/uL (4.1-5.3); Red Cell Distribution Width 13.8 % (12.1-15.1); White Blood Count 13.9 10^3/uL (4.0-10.0)
[2021-01-25 06:08] LABS: Alanine Aminotransferase 20 U/L (0-33); Alkaline Phosphatase 95 IU/L (35-105); Anion Gap 8.8 (5-19); Aspartate Amino Transferase 15 U/L (0-32); Blood Urea Nitrogen 10 mg/dL (8-23); Calcium 8.3 mg/dL (8.5-10.5); Carbon Dioxide 27 mmol/L (22-29); Chloride 105 mmol/L (98-107); Creatinine Clr Calc Pharmacy 109.6301; Globulin 2.7 g/dL (1.3-4.6); Glomerular Filtration Rate 101.3 mL/min (90-130); Glucose 113 mg/dL (65-115); Osmolality Calculated 284 mOsm/kg (285-295); Potassium 3.8 mmol/L (3.5-5.1); Sodium 137 mmol/L (136-145); Total Bilirubin 0.4 mg/dL (0.15-1.2); Total Protein 5.7 g/dL (6.6-8.7)
[2021-01-25 06:15] LABS: Lipase 446 U/L (13-60)
--- NOTE | 2021-01-25 08:00 | NM_ITS ---
WS: [id number] NUCLEAR MEDICINE HIDA SCAN CLINICAL INFORMATION: Duodenitis, pancreatitis TECHNIQUE: Following intravenous administration of 7.1 mCi of technetium 99m mebrofenin, images of th e abdomen were obtained over the course of 60 minutes. Next, gallbladder ejection fraction was determ ined by obtaining preprandial and one-hour postprandial images of the gallbladder following oral chanelle stion of Ensure. COMPARISON: None. FINDINGS: Normal hepatic uptake at 5 minutes. Hepatomegaly. Normal hepatic excretion. Gallbladder is visualized by 20 minutes. No evidence of acute cholecystitis. Normal common bile duct and small bowel activity. Gallbladder ejection fraction 0% at 74 minutes. Findings compatible with gallbladder dysfunction susp icious for chronic cholecystitis. NM/NM hepatobiliary w phar* [id number] IMPRESSION: Gallbladder ejection fraction 0% at 74 minutes. Findings compatible with gallbl adder dysfunction suspicious for chronic cholecystitis.
[2021-01-25] MEDS: morphine 4 mg/mL SDV 1 mL 2 MG IVP ×3 (09:02→21:35)
[2021-01-25] MEDS: enoxaparin 40 mg/0.4 mL Syringe SUBCUT (09:04)
--- NOTE | 2021-01-25 11:01 | PC.CHAP ---
Pastoral Care Encounter/Spiritual Assessment Type of Contact [] Declined electric trucker visit [] Patient/Family/Request visit [] Outpatient visit [] Follow-up visit [] Physician referral [] Code/Alert [] Routine visit [] Staff referral [] Actively dying [] Patient sleeping [] Family support [] [] Out of room [] Palliative care [] [] Receiving care in room [] Pre-surgical visit [] Trauma [] Long length of stay [] ICU visit [x] Other: Isolation Relational/Emotional Strength [] Patient feels connected with others/family/visitors/staff [] Distress [] Loneliness/isolation [] Abandonment Spirituality of Patient [] Person of Valentina [] Attends Christianity of their Valentina [] Believes in Prayer [] Reads Bible or Confucianist materials [] There are Spiritual issues to be addressed Party Chief Interventions [] Prayer [] Active listening [] Non-anxious presence [] Spiritual/emotional support [] Crisis/trauma care [] Spiritual counseling [] Bereavement support [] Provided bereavement packet [] Provided Bible/devotional materials [] Provided toy/stuffed animal, coloring book to patient or family member [] Provided Communion [] Anointing/[place] [] Salvation [] Completed spiritual assessment [] Other: Impact on Illness or Injury [] Angry [] Fearful [] Anxious [] Often cries [] Exhaustion [] Unable to work [] Unable to attend restoration [] Unable to walk/stand [] Unable to read [] Unable to drive [] Unable to eat/drink [] Unable to sleep [] Unable to be with family [] Patient intubated [] Other: Summary Isolation Time spent with patient 5 mins
[2021-01-25 13:56] LABS: Coronavirus Test Green County Not Detected
[2021-01-25] MEDS: ondansetron 2 mg/ML SDV 2 mL 4 MG IVP (16:06)
--- NOTE | 2021-01-25 16:30 | P.PN_ITS ---
Subjective Subjective: Interval history: Patient was seen and examined this morning. She is feeling better, able to tolerate her diet no active nausea or vomiting HIDA scan showing chronic cholecystitis with gallbladder dysfunction Vitals/I&O/Wt Last Vital Signs Temp 98.1 F 01/25/21 15:43 Pulse 65 01/25/21 15:43 Resp 17 01/25/21 15:43 BP 109/70 01/25/21 15:43 Pulse Ox 98 01/25/21 15:43 01/25/21 01/25/21 01/25/21 06:59 14:59 22:59 Intake Total 1000 / 1640 480 / 480 Output Total 300 / 800 900 / 900 Balance 700 / 840 -420 / -420 Weight last 48 hrs Weight 86.183 kg Physical Exam Narrative: EXAM NARRATIVE: Laying supine without any active discomfort able to tolerate diet S1, S2 Clinically looks slightly dehydrated Abdomen slight tenderness in the midepigastric region Appropriate mood and affect EOMI, PERRLA No neurological deficit Very pleasant and cooperative during my evaluation Data : 01/25/21 05:35 01/25/21 05:35 A&P Assessment and plan (1) Disseminated histoplasmosis: Status: Acute (2) Pancreatitis: Status: Acute Qualifiers: Acute pancreatitis complication: unspecified Chronicity: acute Pancreatitis type: unspecified pancreatitis type Qualified Code(s): K85.90 - Acute pancreatitis without necrosis or infection, unspecified Additional A&P Information Acute pancreatitis Lipase trending down able to tolerate her diet Advance her diet today Triglyceride unremarkable she is non-smoker nonalcoholic HIDA scan showing gallbladder dysfunction no active gallstones If she is tolerating her diet tomorrow we will plan her discharge home History of disseminated histoplasmosis continue itraconazole Off biological agent for ulcerative colitis DVT prophylaxis Lovenox full code COVID-19 PCR negative Attestations Medical Necessity Statement*: Anticipating discharge tomorrow if able to tolerate diet Time Spent in Patient Care: less than 15 minutes Coding Level of Care Code Acute Manager Inventory for [facility] [place] Diagnoses Disseminated histoplasmosis B39.9 Pancreatitis K85.90 Acute pancreatitis complication: unspecified Chronicity: acute Pancreatitis type: unspecified pancreatitis type
[2021-01-26] VITALS: BP 108/71; PULSE 60; RESP 16; TEMP 36.5; O2SAT 97
[2021-01-26 04:00] VITALS: BP 105/69; PULSE 60; RESP 16; TEMP 37.1; O2SAT 98
[2021-01-26 07:21] VITALS: BP 120/75; PULSE 61; RESP 18; TEMP 36.6; O2SAT 97
[2021-01-26] MEDS: enoxaparin 40 mg/0.4 mL Syringe SUBCUT (08:49)
[2021-01-26 10:21] VITALS: RESP 18
[2021-01-26] MEDS: ondansetron 2 mg/ML SDV 2 mL 4 MG IVP (10:21)
[2021-01-26] MEDS: morphine 4 mg/mL SDV 1 mL 2 MG IVP (10:21)
--- NOTE | 2021-01-26 11:54 | P.DS_ITS ---
Discharge Providers Date of Admission: 01/24/21 08:19 Date of Discharge: January 26, 2021 Attending Provider at Admission: Annel Og MD Attending Provider at Discharge: Annel Og MD Diagnoses at Discharge Discharge Diagnosis (1) Disseminated histoplasmosis: Status: Acute Permanent problem details: on lifelong itraconazole maintainence (2) Pancreatitis: Status: Acute Qualifiers: Acute pancreatitis complication: unspecified Chronicity: acute Pancreatitis type: unspecified pancreatitis type Qualified Code(s): K85.90 - Acute pancreatitis without necrosis or infection, unspecified Reason for Visit Reason for Visit: Possible Bowel Obstruction Hospital Course Hospital Course Patient was admitted for management of pancreatitis, HIDA scan was requested which showed gallbladder dysfunction with chronic cholecystitis however no gallstones or CBD dilation, patient's symptoms improved her lipase was trending down leukocytosis trending down to 13,000 she stayed afebrile no signs of sepsis. She has an appointment with her GI on Friday at [place]. She is being discharged with medications p.o. Zofran p.o. Physical Exam Narrative: EXAM NARRATIVE: Able to ambulate without any difficulty S1, S2 Clinically looks slightly dehydrated Abdomen slight tenderness in the midepigastric region Appropriate mood and affect EOMI, PERRLA No neurological deficit Very pleasant and cooperative during my evaluation Discharge Data Data Completed and Pending: Completed Studies During Hospitalization Category Date Time Status CT abdomen pelvis w con* [id number] Urge nt Cat Scan 01/24/21 03:23 Completed XR chest 1V alysa ble [id number] Stat Exams 01/24/21 08:18 Completed NM hepatobiliary w phar* [id number] Rout ine Nuc Med 01/25/21 08:00 Completed Pending at discharge Category Date Time Status Lipase Stat Lab 01/26/21 08:05 Ordered Labs from last 24 hours 01/25/21 01:00 Nasal/Oral COVID-1 9 PCR Not detected Vitals: Last Vital Signs Temp 98 F 01/26/21 07:21 Pulse 61 01/26/21 07:21 Resp 18 01/26/21 10:21 BP 120/75 01/26/21 07:21 Pulse Ox 97 01/26/21 07:21 Discharge Plan Discharge Patient Disposition: Home Condition: Stable Prescriptions: New ondansetron 4 mg tablet,disintegrating 4 mg PO Q6H PRN (Reason: nausea and vomiting) Qty: 14 RF: 0 Zofran 4 mg tablet 4 mg PO DAILY Qty: 20 RF: 0 hydrocodone-acetaminophen 5-300 mg tablet 1 tab PO BID PRN (Reason: pain) Qty: 10 RF: 0 Continued multivitamin Tablet 1 tab PO DAILY RF: 0 Zyrtec 10 mg Tablet 10 mg PO DAILY RF: 0 estradiol 1 mg Tablet 1 mg PO QAM RF: 0 Tessalon Perles 100 mg Capsule 100 mg PO TID RF: 0 Mucinex DM 60-1,200 mg Tablet Extended Release 12 Hr 1 tab PO Q12H RF: 0 azelastine 137 mcg (0.1 %) Aerosol,[place] 2 spray INTRANASAL BID RF: 0 ascorbic acid (vitamin C) 1,000 mg Tablet,Chewable 1,000 mg PO DAILY RF: 0 fluticasone propionate 50 mcg/actuation [place],Suspension 2 spray INTRANASAL BID RF: 0 itraconazole 100 mg Capsule 200 mg PO BID RF: 0 olopatadine 0.2 % Drops 1 drp OPHTHALMIC (EYE) QAM RF: 0 Vitamin D3 25 mcg (1,000 unit) Tablet,Chewable 25 mcg PO DAILY RF: 0 Dulera 200-5 mcg/actuation Hfa Aerosol Inhaler 2 puff INHALATION BID RF: 0 Spiriva Respimat 1.25 mcg/actuation Mist 2 puff INHALATION QAM RF: 0 Citracal plus D 1 tab PO DAILY RF: 0 Fish Oil 1 cap PO DAILY RF: 0 Probiotic Gummies 1 tab PO DAILY RF: 0 Vitamin B-12 1 tab PO DAILY RF: 0 Discharge Orders: Discharge Order (Routine); Ordered 01/26/21 Ordered By: Annel Og Discharge Diet: Advance as tolerated Discharge Activity: Resume usual activity Patient Instructions: Pancreatitis (ED), Opioid Safety Activity Restrictions/Additional Instructions: Gallbladder dysfunction noticed with HIDA scan, NUCLEAR MEDICINE HIDA SCAN CLINICAL INFORMATION: Duodenitis, pancreatitis TECHNIQUE: Following intravenous administration of 7.1 mCi of technetium 99m mebrofenin, images of the abdomen were obtained over the course of 60 minutes. Next, gallbladder ejection fraction was determined by obtaining preprandial and one-hour postprandial images of the gallbladder following oral ingestion of Ensure. COMPARISON: None. FINDINGS: Normal hepatic uptake at 5 minutes. Hepatomegaly. Normal hepatic excretion. Gallbladder is visualized by 20 minutes. No evidence of acute cholecystitis. Normal common bile duct and small bowel activity. Gallbladder ejection fraction 0% at 74 minutes. Findings compatible with gallbladder dysfunction suspicious for chronic cholecystitis. NM/NM hepatobiliary w phar* [id number] IMPRESSION: Gallbladder ejection fraction 0% at 74 minutes. Findings compatible with gallbladder dysfunction suspicious for chronic cholecystitis. CT abdomen pelvis w con* [id number] 01/22/2020 5:21 AM RADIATION DOSE METRICS: Total DLP (mGy-cm): 1669.37 FINDINGS: Lungs: The lung bases are clear. No effusion Liver: Normal. No mass. Gallbladder and bile ducts: No wall thickening, pericholecystic fluid or stones. Pancreas: There is fat stranding around the head of the pancreas and 3rd portion of the duodenum. Spleen: Normal. No splenomegaly. Adrenal glands: Normal. No mass. Kidneys and ureters: Normal. No hydronephrosis. Stomach and bowel: Diverticulosis without diverticulitis. 2.5 cm duodenal diverticulum. Appendix: The appendix is not positively identified. However, no secondary changes of appendicitis are present. Intraperitoneal space: Unremarkable. No free air. No significant fluid collection. Vasculature: Unremarkable. No abdominal aortic aneurysm. Lymph nodes: Unremarkable. No enlarged lymph nodes. Urinary bladder: Unremarkable as visualized. Reproductive: Unremarkable as visualized. Bones/joints: Severe disc space narrowing at L4-L5. Soft tissues: Unremarkable. CT/CT abdomen pelvis w con* [id number] IMPRESSION: 1. Duodenitis versus acute pancreatitis. 2. Diverticulosis without diverticulitis. 3. The appendix is not positively identified. However, no secondary changes of appendicitis are present. Pacemaker leads are present in the heart. Discharge Attestations Time Spent in Discharge Care*: less than 30 min Quality Metrics Clinical Quality Measures During this hospital stay, did patient experience: None Coding Level of Care Code Acute Chg FW DE note Diagnoses Disseminated histoplasmosis B39.9 Pancreatitis K85.90 Acute pancreatitis complication: unspecified Chronicity: acute Pancreatitis type: unspecified pancreatitis type
[2021-01-26 12:00] VITALS: BP 124/81; PULSE 59; RESP 16; TEMP 36.5; O2SAT 97
--- NOTE | 2021-01-26 12:17 | PC.CHAP ---
Pastoral Care Encounter/Spiritual Assessment Type of Contact [xx] Declined plate and frame filter operator visit [] Patient/Family/Request visit [] Outpatient visit [] Follow-up visit [] Physician referral [] Code/Alert [] Routine visit [] Staff referral [] Actively dying [] Patient sleeping [] Family support [] [] Out of room [] Palliative care [] [] Receiving care in room [] Pre-surgical visit [] Trauma [] Long length of stay [] ICU visit [] Other: Relational/Emotional Strength [] Patient feels connected with others/family/visitors/staff [] Distress [] Loneliness/isolation [] Abandonment Spirituality of Patient [] Person of Valentina [] Attends Temple of their Valentina [] Believes in Prayer [] Reads Bible or Mu-Ism materials [] There are Spiritual issues to be addressed Medical Claims Processor Interventions [] Prayer [xx] Active listening [xx] Non-anxious presence [] Spiritual/emotional support [] Crisis/trauma care [] Spiritual counseling [] Bereavement support [] Provided bereavement packet [] Provided Bible/devotional materials [] Provided toy/stuffed animal, coloring book to patient or family member [] Provided Communion [] Anointing/[place] [] Salvation [] Completed spiritual assessment [] Other: Impact on Illness or Injury [] Angry [] Fearful [] Anxious [] Often cries [] Exhaustion [] Unable to work [] Unable to attend mosque [] Unable to walk/stand [] Unable to read [] Unable to drive [] Unable to eat/drink [] Unable to sleep [] Unable to be with family [] Patient intubated [] Other: Summary Patient stated she did not need a plate and frame filter operator as she is being discharged and is busy making transportation arrangements. Time spent with patient 2 minutes
[2021-01-26 13:16] VITALS: BP 124/81; PULSE 59; RESP 16; TEMP 36.5; O2SAT 97
== END 2021-01-26 13:18 | disposition home or self-care (01) | DRG 440 ==
LOC: ER 07:40 → ER IP 13:04 → MEDSURG 15:22
PROVIDERS: Student in an Organized Health Care Education/Training Program; Admitting Provider Internal Medicine; Emergency Provider Emergency Medicine; Visit Provider Internal Medicine
DX: K85.90 Acute pancreatitis without necrosis or infection, unspecified (principal); B39.9 Histoplasmosis, unspecified; Z79.899 Other long term (current) drug therapy; Z95.0 Presence of cardiac pacemaker; E86.0 Dehydration; K81.1 Chronic cholecystitis
CPT/HCPCS: 36415; 71045; 74177; 78227; 80053; 80307; 83605; 83690; 84478; 85025; 87635; 96361; 96372; 96374; 96375; 99285; A9537; J1170; J1650; J2270; J2405; J3490; Q9967